=== PATIENT | female | born 1990 | race Caucasian/White ===

== ENCOUNTER 2025-01-17 12:03 | Emergency (ER) | payer MEDICAID ==
[~2025-01-17] VITALS: Wt 68.0 kg
[2025-01-17] MEDS ORDERED: SEPTDS PO (14:22)
== END 2025-01-17 14:27 | disposition left against medical advice (07) ==
LOC: ED 12:03
DX: R21 Rash and other nonspecific skin eruption (principal); L53.9 Erythematous condition, unspecified; R60.0 Localized edema; Z88.8 Allergy status to other drugs, medicaments and biological substances; Z53.29 Procedure and treatment not carried out because of patient's decision for other reasons

== ENCOUNTER 2025-01-19 20:09 | Emergency (ER) | payer MEDICAID ==
[~2025-01-19] VITALS: Ht 162.6 cm; Wt 68.0 kg
[~2025-01-19 20:09] MED LIST: SEPTDS PO
[2025-01-19] MEDS ORDERED: PREDNISONE20 M1 PO (20:34)
== END 2025-01-19 20:44 | disposition home or self-care (01) ==
LOC: ED 20:09
DX: L23.7 Allergic contact dermatitis due to plants, except food (principal); Z88.8 Allergy status to other drugs, medicaments and biological substances